=== PATIENT | male | born 2000 | race Caucasian/White ===

== ENCOUNTER 2023-08-27 21:46 | Emergency (ER) | payer OTHER ==
[~2023-08-27] VITALS: Ht 182.9 cm; Wt 77.3 kg
[2023-08-27 21:56] VITALS: TEMP 97.5
[2023-08-27 23:58] VITALS: BP 103/76; PULSE 68
== END 2023-08-27 23:58 | disposition home or self-care (01) ==
LOC: COL.ER 21:46
DX: F41.9 Anxiety disorder, unspecified (principal); F32.A Depression, unspecified; Z79.899 Other long term (current) drug therapy